=== PATIENT | male | born 1990 | race Caucasian/White ===

== ENCOUNTER 2018-06-02 18:41 | Observation (INO) ==
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
[2018-06-02] MEDS ORDERED: *HR* HYDROcodone/Acet 5/325 mg TABLET PO ONE (18:53)
[2018-06-02] MEDS ORDERED: Isovue-370 500 ML INFUS..BTL IV ONE ×2 (18:53→20:58)
[2018-06-02] MEDS ORDERED: 0.9 % Sodium Chloride 1,000 ML IVC ONE (18:53)
[2018-06-02 19:10] LABS: Basophils % 0.3 %; Eosinophils # 0.5 K/mcL (0.0-0.6); Eosinophils % 3.5 %; Hematocrit 43.8 % (37.5-50.1); Hemoglobin 15.6 g/dL (12.9-16.9); Immature Granulocytes % 0.3 % (0-4); Lymphocytes # 1.6 K/mcL (0.6-4.6); Lymphocytes % 12.3 %; Mean Corpuscular HGB Conc 35.6 g/dL (31.6-35.5); Mean Corpuscular Hemoglobin 31.3 pg (28.0-33.3); Mean Platelet Volume 9.3 fL (9.4-12.4); Monocytes # 1.5 K/mcL (0.0-1.3); Monocytes % 11.3 %; Platelet Count 277 K/mcL (140-400); Red Blood Count 4.98 M/mcL (4.19-5.50); Red Cell Distribution Width 12.6 % (11.5-14.5); Segmented Neutrophils % 72.3 %
[2018-06-02 19:14] LABS: Neutrophils # 9.5 K/mcL (1.6-8.9)
[2018-06-02] MEDS: 0.9 % Sodium Chloride 1,000 ML IVC SCH ×2 (19:18→21:53)
[2018-06-02 19:28] LABS: BUN/Creatinine Ratio 14 (6-26); Blood Urea Nitrogen 14 mg/dL (6-20); Calcium 8.7 mg/dL (8.6-10.3); Carbon Dioxide 28 mEq/L (23-29); Chloride 102 mEq/L (98-107); Glucose 99 mg/dL (70-105); Osmolality,Calculated 285 (280-300); Potassium 3.8 mEq/L (3.5-5.1); Sodium 137 mEq/L (136-145); eGFR For Non-African Americans > 60 (> 60)
[2018-06-02] MEDS ORDERED: Acetaminophen 325 MG TABLET PO PRN (20:58)
[2018-06-02] MEDS ORDERED: Naloxone 0.4 MG/ML INJ IVP PRN (20:58)
[2018-06-02] MEDS ORDERED: traMADol 50 MG TABLET PO PRN (20:58)
[2018-06-02] MEDS: *HR* HYDROcodone/Acet 5/325 mg TABLET PO PRN (21:52)
[2018-06-02] MEDS: Sulfamethoxazole/Trimeth DS 1 EACH TABLET PO SCH (21:53)
[2018-06-03] MEDS: 0.9 % Sodium Chloride 1,000 ML IVC SCH ×3 (05:32→12:34)
[2018-06-03] MEDS: *HR* HYDROcodone/Acet 5/325 mg TABLET PO PRN (08:38)
[2018-06-03] MEDS: Sulfamethoxazole/Trimeth DS 1 EACH TABLET PO SCH ×2 (08:39→19:55)
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
[2018-06-03] MEDS ORDERED: *HR* HYDROcodone/Acet 10/325 mg TABLET PO PRN (11:46)
[2018-06-03] MEDS ORDERED: *HR* OxyCODONE/APAP 5/325 TABLET PO PRN ×2 (14:26→14:33)
[2018-06-03] MEDS: *HR* OxyCODONE/APAP 5/325 TABLET PO PRN ×2 (15:21→19:55)
[2018-06-03] MEDS: Lactobacillus 1 EACH CAP.SPRINK PO SCH (19:55)
[2018-06-04] MEDS: *HR* OxyCODONE/APAP 5/325 TABLET PO PRN ×4 (01:09→21:33)
[2018-06-04] MEDS: 0.9 % Sodium Chloride 1,000 ML IVC SCH ×2 (06:30→17:34)
[2018-06-04] MEDS ORDERED: Aminoglycoside Consult 1 EACH MC ONE (06:35)
[2018-06-04 06:41] LABS: Basophils % 0.4 %; Eosinophils # 0.7 K/mcL (0.0-0.6); Eosinophils % 8.2 %; Hematocrit 39.9 % (37.5-50.1); Hemoglobin 14.1 g/dL (12.9-16.9); Immature Granulocytes % 0.2 % (0-4); Lymphocytes # 1.9 K/mcL (0.6-4.6); Lymphocytes % 22.9 %; Mean Corpuscular HGB Conc 35.3 g/dL (31.6-35.5); Mean Corpuscular Hemoglobin 31.4 pg (28.0-33.3); Mean Corpuscular Volume 88.9 fL (83.0-100.0); Mean Platelet Volume 9.3 fL (9.4-12.4); Monocytes # 0.9 K/mcL (0.0-1.3); Monocytes % 10.6 %; Neutrophils # 4.7 K/mcL (1.6-8.9); Platelet Count 266 K/mcL (140-400); Red Blood Count 4.49 M/mcL (4.19-5.50); Red Cell Distribution Width 12.6 % (11.5-14.5); Segmented Neutrophils % 57.7 %
[2018-06-04 07:02] LABS: BUN/Creatinine Ratio 7 (6-26); Blood Urea Nitrogen 7 mg/dL (6-20); Calcium 8.6 mg/dL (8.6-10.3); Carbon Dioxide 29 mEq/L (23-29); Chloride 105 mEq/L (98-107); Glucose 105 mg/dL (70-105); Osmolality,Calculated 286 (280-300); Sodium 139 mEq/L (136-145); eGFR For Non-African Americans > 60 (> 60)
[2018-06-04] MEDS: Lactobacillus 1 EACH CAP.SPRINK PO SCH ×2 (09:07→20:21)
[2018-06-04] MEDS: Sulfamethoxazole/Trimeth DS 1 EACH TABLET PO SCH ×2 (09:07→20:21)
--- NOTE | 2018-06-04 12:10 | Internal Med Progress Note ---
Date of Encounter: 06/04/18 Time of Encounter: 11:50 - Assessment and plan (1) Left leg cellulitis Current Visit: Yes Status: Acute Assessment and plan: June 04. Continue IV vancomycin and oral Septra with lactobacillus. - Subjective Interval history: June 04. He has no new complaints. He complains of ongoing discomfort in his left lower leg. - Constitutional Vitals: Temp Pulse Resp BP Pulse Ox 97.9 F 83 16 115/71 100 06/04/18 11:21 06/04/18 11:21 06/04/18 11:21 06/04/18 11:21 06/04/18 11:21 Exam: He is lying in bed and appears in no acute distress at rest. There is no signi ficant drainage from the leg ulcer. The intensity of the erythema appears slightly decreased and the margins appeared to be receding. The edema also appears to have slightly decreased. I reviewed his medications and lab results. Internal Medicine: Result - Labs CBC & Chem 7: 06/04/18 06:35 06/04/18 06:35 Labs: Short CBC 06/04/18 Range/Units 06:35 WBC 8.2 (4.3-11.1) K/mcL Hgb 14.1 D (12.9-16.9) g/dL Hct 39.9 (37.5-50.1) % Plt Count 266 (140-400) K/mcL Neutrophils # 4.7 (1.6-8.9) K/mcL BMP 06/04/18 06:35 Sodium 139 Potassium 4.0 Chloride 105 Carbon Dioxide 29 BUN 7 Creatinine 0.96 Glucose 105 Calcium 8.6 Consult Discharge Plan - Plan Referrals: Taqueria Swenson DO [Primary Care Provider] - 1 week
[2018-06-05] MEDS: *HR* OxyCODONE/APAP 5/325 TABLET PO PRN ×2 (02:02→09:13)
[2018-06-05 07:00] VITALS: BP 113/69
[2018-06-05] MEDS: Sulfamethoxazole/Trimeth DS 1 EACH TABLET PO SCH (09:14)
[2018-06-05] MEDS: Lactobacillus 1 EACH CAP.SPRINK PO SCH (09:14)
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
== END 2018-06-05 11:15 | disposition home or self-care (01) ==
LOC: INPPIK 18:41 → EMEROOPIK 18:41 → INPPIK 20:46
PROVIDERS: ADMIT Internal Medicine; ATTEND Internal Medicine